=== PATIENT | female | born 1980 | race Caucasian/White ===

== ENCOUNTER 2016-05-19 09:22 | Emergency (ER) | payer MEDICAID, OTHER ==
[~2016-05-19] VITALS: Ht 165.1 cm; Wt 95.3 kg
[2016-05-19 09:33] VITALS: BP 138/68
--- NOTE | 2016-05-19 09:48 | NUR ---
DR DAVE IN ROOM FOR EXAM
--- NOTE | 2016-05-19 09:59 | NUR ---
PT HERE FOR SUDDEN ONSET RT SIDED CHEST PAIN RADIATING TO RT UPPER BACK. DENIES ANY FEVERS OR CHILLS. DENIES ANY ACUTE STRESS. PAIN GETS WORSE WITH DEEP BREATHING. PT STATES SHE HAS ANXIETY. DENIES ANY FEVERS/CHILLS. AT BEDSIDE. EKG/CXR DONE.
[2016-05-19] MEDS ORDERED: LIDOCAINE VISCOUS 2% 20 ML UDC PO ONE (10:50)
[2016-05-19] MEDS ORDERED: ALUMINUM HYD/MAG/SIMETHICONE 30 ML UDC PO ONE (10:50)
[2016-05-19] MEDS ORDERED: BELLADONNA/PHENOBARBITAL 5 ML ORASYR PO ONE (10:50)
--- NOTE | 2016-05-19 11:45 | NUR ---
PT REPORTS FEELING BETTER AFTER GI COCKTAIL, HSBAND AT [facility]
--- NOTE | 2016-05-19 11:57 | NUR ---
DR DAVE IN ROOM FOR RE ASSESSMENT
--- NOTE | 2016-05-19 12:07 | NUR ---
Patient discharged with v/s stable. Written and verbal after care instructions given and explained. Patient alert, oriented and verbalized understanding of instructions. Ambulatory with steady gait. All questions addressed prior to discharge. ID band removed. Patient advised to follow up with PMD. Rx of OMEPRAZOLE given. Patient educated on indication of medication including possible reaction and side effects. Opportunity to ask questions provided and answered.
[2016-05-19 12:08] VITALS: BP 109/75
== END 2016-05-19 12:07 | disposition home or self-care (01) ==
LOC: MED 09:22
DX: K21.9 Gastro-esophageal reflux disease without esophagitis (principal); R03.0 Elevated blood-pressure reading, without diagnosis of hypertension; M54.9 Dorsalgia, unspecified
CPT/HCPCS: 71010; 81002; 81025; 93005; 99284; Q0092

== ENCOUNTER 2016-09-19 18:43 | Emergency (ER) | payer MEDICAID ==
[~2016-09-19] VITALS: Ht 165.1 cm; Wt 93.0 kg
[2016-09-19 19:24] VITALS: BP 122/43
--- NOTE | 2016-09-19 20:57 | NUR ---
PATIENT AMBULATED TO ER BED 8.
--- NOTE | 2016-09-19 20:59 | NUR ---
PATIENT PRESENTS TO ED WITH C/O LOWER/RT SIDE BACK PAIN/SCIATICA. PAIN 10/10. NEEDS MED REFILLS NORCO . PT DENIES N/V/D; SKIN IS PINK/WARM/DRY; AAOX4 WITH EVEN AND STEADY GAIT; LUNGS CLEAR BL; HR EVEN AND REGULAR; PT DENIES ANY FEVER, CP, SOB, OR COUGH AT THIS TIME; PATIENT STATES PAIN OF 10/10 AT THIS TIME; VSS; PATIENT POSITIONED FOR COMFORT; HOB ELEVATED; BEDRAILS UP X2; BED DOWN. ER MD MADE AWARE OF PT STATUS.
--- NOTE | 2016-09-19 21:15 | NUR ---
PATIENT BEING EVALUATED BY DR. NIÑO.
[2016-09-19] MEDS ORDERED: KETOROLAC 60 MG/2 ML VIAL IM ONE (21:20)
--- NOTE | 2016-09-19 21:40 | NUR ---
Patient discharged with v/s stable. Written and verbal after care instructions given and explained. Patient alert, oriented and verbalized understanding of instructions. Ambulatory with steady gait. All questions addressed prior to discharge. ID band removed. Patient advised to follow up with PMD. Rx of MOTRIN 800MG, NORCO 10/325, LIDOCAINE 5% PATCH given. Patient educated on indication of medication including possible reaction and side effects. Opportunity to ask questions provided and answered.
[2016-09-19 21:41] VITALS: BP 136/71
== END 2016-09-19 21:40 | disposition home or self-care (01) ==
LOC: MED 18:43
DX: M54.41 Lumbago with sciatica, right side (principal); F17.200 Nicotine dependence, unspecified, uncomplicated
CPT/HCPCS: 81002; 81025; 96372; 99283; J1885

== ENCOUNTER 2016-09-27 21:01 | Emergency (ER) | payer MEDICAID ==
[~2016-09-27] VITALS: Ht 165.1 cm; Wt 94.0 kg
[2016-09-27 21:08] VITALS: BP 131/55
--- NOTE | 2016-09-27 21:20 | NUR ---
35Y F BIB SELF C/O LOWER ABD PAIN, WITH VAG PAIN STARTED AT 1600 HOURS, S/P HIKING. PT STATES PELVIC PAIN FEELS LIKE PRESSURE. PT DENIES ANY N/V/D, SOB, CP AT THE MOMENT. PT IS AAOX4. BREATHING IS UNLABORED. AB IS SOFT AND ROUND. PT DENIES ANY BOWEL DIFFICULTY, BUT DID STATE DRIBBLING DURING URINATION.
--- NOTE | 2016-09-27 21:20 | NUR ---
PT TAKEN TO BED 5
--- NOTE | 2016-09-27 21:59 | NUR ---
Dr. Hernandez evaluating patient at bedside.
--- NOTE | 2016-09-27 22:21 | NUR ---
Patient discharged with v/s stable. Written and verbal after care instructions given and explained. Patient alert, oriented and verbalized understanding of instructions. Ambulatory with steady gait. All questions addressed prior to discharge. ID band removed. Patient advised to follow up with PMD. Rx of MACROBID AND PYRIDIUM 200MG given. Patient educated on indication of medication including possible reaction and side effects. Opportunity to ask questions provided and answered.
[2016-09-27 22:22] VITALS: BP 122/69
== END 2016-09-27 21:20 | disposition home or self-care (01) ==
LOC: MED 21:01
DX: N39.0 Urinary tract infection, site not specified (principal); R03.0 Elevated blood-pressure reading, without diagnosis of hypertension; F41.9 Anxiety disorder, unspecified; F32.9 Major depressive disorder, single episode, unspecified
CPT/HCPCS: 81002; 81025; 99283

== ENCOUNTER 2017-02-03 15:16 | Emergency (ER) | payer OTHER ==
[~2017-02-03] VITALS: Ht 165.1 cm; Wt 96.4 kg
[2017-02-03 15:41] VITALS: BP 121/62
[2017-02-03] MEDS ORDERED: LIDOCAINE 1% ***ER ONLY *** 10 MG/ML VIAL INJ ONE (16:10)
[2017-02-03] MEDS ORDERED: ONDANSETRON 4 MG ODT PO ONE (17:00)
[2017-02-03] MEDS ORDERED: fentaNYL 0.05 MG/ML VIAL IM ONE (17:00)
[2017-02-03 17:51] VITALS: BP 116/79
== END 2017-02-03 17:50 | disposition home or self-care (01) ==
LOC: MED 15:16
DX: G89.29 Other chronic pain (principal); M54.5 Low back pain
CPT/HCPCS: 20552; 81002; 81025; 96372; 99284; J2001; J3010; S0119

== ENCOUNTER 2017-05-02 11:00 | Emergency (ER) | payer OTHER ==
[~2017-05-02] VITALS: Ht 167.6 cm; Wt 93.0 kg
[2017-05-02 11:05] VITALS: BP 109/60
--- NOTE | 2017-05-02 11:20 | NUR ---
36f bib self with c/o multiple scratches, puncture ba through bl hands and arms. Pt sts she was taking her personal cat a bath when scratches and punctures occured. Pt sts her cat is utd wiht animal vaccinations. Swelling noted to left lower arm. CMs intact to bl arm/hands. Pt also reports of 7/10 "dull" constant bl arm/hand pain. Pt is aox4. gcs=15. RR are even and unlabored. NAD. Awaiting er md payton. Will continue to monitior.
[2017-05-02 12:00] VITALS: BP 119/81
--- NOTE | 2017-05-02 12:00 | NUR ---
Patient discharged with v/s stable. Written and verbal after care instructions given and explained. Patient alert, oriented and verbalized understanding of instructions. Ambulatory with steady gait. All questions addressed prior to discharge. ID band removed. Patient advised to follow up with PMD. Rx of Motrin, Augmentin, and Barton #5 given. Patient educated on indication of medication including possible reaction and side effects. Opportunity to ask questions provided and answered.
== END 2017-05-02 12:00 | disposition home or self-care (01) ==
LOC: MED 11:00
DX: S61.532A Puncture wound without foreign body of left wrist, initial encounter (principal); L03.114 Cellulitis of left upper limb; F17.200 Nicotine dependence, unspecified, uncomplicated; W55.01XA Bitten by cat, initial encounter; Y93.89 Activity, other specified; Y92.89 Other specified places as the place of occurrence of the external cause; Y99.8 Other external cause status
CPT/HCPCS: 99283

== ENCOUNTER 2017-08-13 20:11 | Emergency (ER) | payer OTHER ==
[~2017-08-13] VITALS: Ht 165.1 cm; Wt 90.7 kg
[2017-08-13 20:20] VITALS: BP 137/98
--- NOTE | 2017-08-13 20:25 | NUR ---
PT.AMBULATED TO [facility]
--- NOTE | 2017-08-13 20:31 | NUR ---
PATIENT AMBULATED TO ER BED 10.
--- NOTE | 2017-08-13 20:37 | NUR ---
36Y/F BIB SELF C/O VAGINAL BLEEDING SINCE THURSDAY. CHANGE PAD X 3 SINCE 1499. TOOK NORCO 5 AT 1700. S/P TRANSVAGINAL TUBAL LIGATION ON 08/11. HX. SCIATICA, DENIES OTHER SX.AAOX4 WITH EVEN AND STEADY GAIT; PATIENT STATES PAIN OF 10/10 AT THIS TIME; VSS; PATIENT POSITIONED FOR COMFORT; HOB ELEVATED; BEDRAILS UP X1; BED DOWN. ER MD MADE AWARE OF PT STATUS.
[2017-08-13] MEDS ORDERED: MORPHINE SULFATE 4 MG/ML SYR IVP ONE (21:05)
[2017-08-13] MEDS ORDERED: ONDANSETRON 4 MG/2 ML VIAL IVP ONE (21:05)
[2017-08-13] MEDS ORDERED: NACL 0.9% 1,000 ML IV ONE (21:05)
[2017-08-13 21:43] LABS: BASOPHILS # (AUTO) 0.1 K/uL (0.00-0.22); BASOPHILS % (AUTO) 1.2 % (0.0-2.0); EOSINOPHILS # (AUTO) 0.1 K/uL (0-0.4); HEMATOCRIT 44.4 % (36-48); HEMOGLOBIN 15.1 g/dL (12.0-16.0); LYMPHOCYTES # (AUTO) 4.1 K/uL (2.5-16.5); MEAN CORPUSCULAR HEMOGLOBIN 29 pg (27-31); MEAN CORPUSCULAR HGB CONC 34 g/dL (33-37); MEAN CORPUSCULAR VOLUME 86.2 fL (80-94); MONOCYTES # (AUTO) 0.6 K/uL (0.8-1.0); MONOCYTES % (AUTO) 5.2 % (1.7-9.3); NEUTROPHILS % (AUTO) 54.6 % (42.2-75.2); PLATELET COUNT (AUTO) 297 K/uL (140-450); RED BLOOD CELL COUNT(AUTO) 5.15 MIL/uL (4.20-5.40); RED CELL DISTRIBUTION WIDTH 12.9 % (11.6-13.7); WHITE BLOOD COUNT (AUTO) 10.9 K/uL (4.8-10.8)
--- NOTE | 2017-08-13 22:00 | NUR ---
PATIENT RESTING AT THIS TIME. NO SIGNS OF DISTRESS.
[2017-08-13 22:10] LABS: PROTHROMBIN TIME 10.2 secs (10.8-13.4)
[2017-08-13 22:27] LABS: ALBUMIN 4.2 g/dL (3.4-5.0); ANION GAP 21.8 (8-16); CREATININE 1.1 mg/dL (0.6-1.3); POTASSIUM 3.8 mmol/L (3.5-5.1); TOTAL BILIRUBIN 0.2 mg/dL (0.0-1.0)
[2017-08-13 23:03] LABS: APPEARANCE,URINE CLEAR (CLEAR); BILIRUBIN,URINE NEGATIVE (NEGATIVE); BLOOD, URINE 3+ (NEGATIVE); COLOR,URINE RED (YELLOW); LEUKOCYTE ESTERASE ,URINE NEGATIVE (NEGATIVE); NITRITE, URINE NEGATIVE (NEGATIVE); PH,URINE 5.5 (5.0-9.0); UGLUCOSE NEGATIVE (NEGATIVE)
[2017-08-13 23:26] LABS: RBC,URINE 11-20 (MOD) /HPF (0-5); URINE AMORPHOUS URATE 1+ /HPF (None Seen); WBC,URINE 0-5 (RARE) /HPF (0-5)
--- NOTE | 2017-08-14 | NUR ---
PATIENT RESTING AT THIS TIME. NO SIGNS OF DISTRESS.
[2017-08-14] MEDS ORDERED: MORPHINE SULFATE 4 MG/ML SYR IVP ONE (00:10)
--- NOTE | 2017-08-14 01:00 | NUR ---
PATIENT TAKEN TO CT.
[2017-08-14] MEDS ORDERED: diphenhydrAMINE 50 MG/ML VIAL IVP ONE (01:05)
--- NOTE | 2017-08-14 01:26 | NUR ---
PT RETURN FROM CT.
--- NOTE | 2017-08-14 02:30 | NUR ---
PATIENT RESTING AT THIS TIME. NO SIGNS OF DISTRESS.
[2017-08-14] MEDS ORDERED: cefTRIAXone 250 MG in LIDOCAINE MPF 1% - **ER/OR** 0.9 ML IM ONE (03:10)
[2017-08-14] MEDS ORDERED: cefTRIAXone 250 MG VIAL ONE (03:13)
[2017-08-14] MEDS ORDERED: LIDOCAINE 1% 50 ML ONE (03:14)
[2017-08-14 03:30] VITALS: BP 115/75
--- NOTE | 2017-08-14 03:30 | NUR ---
Patient discharged with v/s stable. Written and verbal after care instructions given and explained. Patient alert, oriented and verbalized understanding of instructions. Ambulatory with steady gait. All questions addressed prior to discharge. ID band removed. Patient advised to follow up with PMD. Rx of DOXYCYCLINE 100MG, NORCO 5MG-325MG AND METRONIDAZOLE 500MG given. Patient educated on indication of medication including possible reaction and side effects. Opportunity to ask questions provided and answered.
[2017-08-18 15:15] LABS: CHLAMYDIA TRACHOMATIS AMP DNA Negative (Negative)
== END 2017-08-14 03:30 | disposition home or self-care (01) ==
LOC: MED 20:11
DX: N73.9 Female pelvic inflammatory disease, unspecified (principal); E07.9 Disorder of thyroid, unspecified
CPT/HCPCS: 36415; 71275; 74176; 80053; 81001; 81025; 82150; 83605; 83690; 84484; 84703; 85025; 85379; 85610; 87040; 87491; 96361; 96372; 96374; 96375; 96376; 99285; J0696; J1200; J2001; J2270; J2405; Q9967